=== PATIENT | female | born 1950 | race Caucasian/White ===

== ENCOUNTER 2017-06-25 01:48 | Emergency (ER) | payer MEDICAID, OTHER ==
[~2017-06-25] VITALS: Ht 157.5 cm; Wt 90.0 kg
[~2017-06-25 01:48] MED LIST: ASPI81TA3 PO
[2017-06-25 01:53] VITALS: Ht 157.5 cm; Wt 90.0 kg
[2017-06-25] MEDS ORDERED: SOD CHLORIDE 0.9% 1,000 ML IV STA (01:57)
[2017-06-25] MEDS ORDERED: METHYLPREDNISOLONE 125 MG INJ IV ONE (02:00)
[2017-06-25] MEDS ORDERED: morphine 4 MG/ML VIAL IV STA (02:28)
[2017-06-25] MEDS ORDERED: ONDANSETRON 4 MG INJ IV STA (02:28)
[2017-06-25 02:43] LABS: BASOPHIL # 0.1 10^3/ul (0.0-0.1); BASOPHILS % 0.5 % (0.0-2.0); EOSINOPHILS # 0.1 10^3/ul (0.0-0.5); EOSINOPHILS % 1.1 % (0.0-7.0); HEMATOCRIT 39.4 % (37.0-47.0); HEMOGLOBIN 12.8 g/dl (12.0-16.0); LYMPHOCYTES # 0.8 10^3/ul (0.8-2.9); LYMPHOCYTES % 7.2 % (15.0-51.0); MEAN CORPUSCULAR HEMOGLOBIN 28.3 pg (29.0-33.0); MEAN CORPUSCULAR HGB CONC 32.5 g/dl (32.0-37.0); MEAN CORPUSCULAR VOLUME 87.2 fl (82.0-101.0); MEAN PLATELET VOLUME 9.6 fl (7.4-10.4); MONOCYTE # 0.7 10^3/ul (0.3-0.9); MONOCYTES % 6.7 % (0.0-11.0); NEUTROPHIL # 8.9 10^3/ul (1.6-7.5); PLATELET COUNT 333 10^3/UL (140-415); RED BLOOD COUNT 4.52 10^6/ul (4.20-5.40); RED CELL DISTRIBUTION WIDTH 14.4 % (11.5-14.5); WHITE BLOOD COUNT 10.6 10^3/ul (4.8-10.8)
--- NOTE | 2017-06-25 02:56 | RADRPT ---
PROCEDURE: XR Chest. CLINICAL INDICATION: Shortness of breath TECHNIQUE: AP Portable chest. COMPARISON: CR CHEST 09/21/2015 FINDINGS: Lordotic view was obtained. The cardiomediastinal silhouette is magnified .The aortic arch is calcified. No focal consolidation, pleural effusion or pneumothorax is seen. The osseous structures are intact. IMPRESSION: No radiographic evidence of acute cardiopulmonary disease. Physician Mert Date Time Electronically viewed and signed by Liz Minor Physician on 06/25/2017 02:56 CS/
[2017-06-25 03:00] LABS: ALANINE AMINOTRANSFERASE 45 IU/L (13-69); ALBUMIN 3.8 g/dl (3.3-4.9); ALBUMIN/GLOBULIN RATIO 1.26; ALKALINE PHOSPHATASE 93 IU/L (42-121); ANION GAP 14 (8-16); ASPARTATE AMINO TRANSFERASE 22 IU/L (15-46); BILIRUBIN,INDIRECT 0.2 mg/dl (0-1.1); BILIRUBIN,TOTAL 0.2 mg/dl (0.2-1.3); BLOOD UREA NITROGEN 10 mg/dl (7-20); CALCIUM 8.7 mg/dl (8.4-10.2); CARBON DIOXIDE 27 mmol/L (21-31); CHLORIDE 103 mmol/L (97-110); CREATININE 0.67 mg/dl (0.44-1.00); GLUCOSE 142 mg/dl (70-220); POTASSIUM 3.7 mmol/L (3.5-5.1); SODIUM 140 mmol/L (135-144); TOTAL PROTEIN 6.8 g/dl (6.1-8.1)
[2017-06-25 03:08] LABS: B-TYPE NATRIURETIC PEPTIDE 267 PG/ML (0-125)
[2017-06-25 03:15] LABS: TROPONIN-I < 0.012 ng/ml (0.00-0.12)
--- NOTE | 2017-06-25 05:29 | ERD ---
ER Documentation Chief Complaint Chief Complaint fever, cough, hernández and weakness HPI This is a 67-year-old female comes in with complaints of fever, headache and weakness for the past 2 days first started with cough which is mildly productive of greenish sputum and developed fever and weakness. Also complains of mild headache. Nonfocal neurologically. No other current issues. ROS All systems reviewed and are negative except as per history of present illness. Medications Home Meds Active Scripts Aspirin (Aspirin) 81 Mg Chew, 81 MG PO DAILY for 30 Days, TAB Prov:YOHANA MCNAMARA 09/23/15 Allergies Allergies: Coded Allergies: No Known Allergy (Unverified , 09/21/15) PMhx/Soc History of Surgery: Yes (cholecystectomy, ) Anesthesia Reaction: No Hx Neurological Disorder: No Hx Respiratory Disorders: No Hx Cardiac Disorders: Yes (AL one year ago, CAD, HTN) Hx Psychiatric Problems: No Hx Miscellaneous Medical Probl: No Hx Alcohol Use: No Hx Substance Use: No Hx Tobacco Use: No Smoking Status: Never smoker Physical Exam Vitals Vital Signs Date Time Temp Pulse Resp B/P Pulse Ox O2 Delivery O2 Flow Rate FiO2 06/25/17 02:38 99.8 81 16 132/73 94 Room Air 06/25/17 01:53 100.0 80 16 139/90 95 Physical Exam Const: [] Head: Atraumatic Eyes: Normal Conjunctiva ENT: Normal External Ears, Nose and Mouth. Neck: Full range of motion..~ No meningismus. Resp: Clear to auscultation bilaterally Cardio: Regular rate and rhythm, no murmurs Abd: Soft, non tender, non distended. Normal bowel sounds Skin: No petechiae or rashes Back: No midline or flank tenderness Ext: No cyanosis, or edema Neur: Awake and alert Psych: Normal Mood and Affect Result Diagram: 06/25/17 0215 06/25/17 0215 Results 24 hrs Laboratory Tests Test 06/25/17 02:15 White Blood Count 10.610^3/ul Red Blood Count 4.5210^6/ul Hemoglobin 12.8g/dl Hematocrit 39.4% Mean Corpuscular Volume 87.2fl Mean Corpuscular Hemoglobin 28.3pg Mean Corpuscular Hemoglobin Concent 32.5g/dl Red Cell Distribution Width 14.4% Platelet Count 85181^3/UL Mean Platelet Volume 9.6fl Neutrophils % 84.0% Lymphocytes % 7.2% Monocytes % 6.7% Eosinophils % 1.1% Basophils % 0.5% Nucleated Red Blood Cells % 0.0/100WBC Neutrophils # 8.910^3/ul Lymphocytes # 0.810^3/ul Monocytes # 0.710^3/ul Eosinophils # 0.110^3/ul Basophils # 0.110^3/ul Nucleated Red Blood Cells # 0.010^3/ul Sodium Level 140mmol/L Potassium Level 3.7mmol/L Chloride Level 103mmol/L Carbon Dioxide Level 27mmol/L Anion Gap 14 Blood Urea Nitrogen 10mg/dl Creatinine 0.67mg/dl Glucose Level 142mg/dl Lactic Acid Level 1.1mmol/L Calcium Level 8.7mg/dl Total Bilirubin 0.2mg/dl Direct Bilirubin 0.00mg/dl Indirect Bilirubin 0.2mg/dl Aspartate Amino Transf (AST/SGOT) 22IU/L Alanine Aminotransferase (ALT/SGPT) 45IU/L Alkaline Phosphatase 93IU/L Troponin I < 0.012ng/ml B-Type Natriuretic Peptide 267PG/ML Total Protein 6.8g/dl Albumin 3.8g/dl Globulin 3.00g/dl Albumin/Globulin Ratio 1.26 Current Medications Medications (Trade) Dose Ordered Sig/Erica Route PRN Reason Start Time Stop Time Status Last Admin Dose Admin Sodium Chloride (NS) 1,000 ml @ 1,000 mls/hr Q1H STAT IV 06/25/17 01:57 06/25/17 02:56 DC 06/25/17 02:22 Methylprednisolone Sodium Succinate (Solu-Medrol) 125 mg ONCE ONCE IV 06/25/17 02:00 06/25/17 02:01 DC 06/25/17 02:22 Ondansetron HCl (Zofran Inj) 4 mg ONCE STAT IV 06/25/17 02:28 06/25/17 02:29 DC 06/25/17 02:32 Morphine Sulfate (morphine) 4 mg ONCE STAT IV 06/25/17 02:28 06/25/17 02:29 DC 06/25/17 02:33 Procedures/MDM Chest X-ray 1V Interpreted by me: Soft Tissue: No acute abnormalities Bones: No acute abnormalities Mediastinum/Cardiac Silhouette/Lungs: [No acute abnormalities] Blood and urine cultures pending Lactic acid negative Influenza negative Medical decision makin-year-old female with looks to be a mild bronchitis. No evidence of sepsis or pneumonia. Well-appearing. Patient be discharged home with azithromycin, prednisone, albuterol. Follow-up PCP. Return for worsening symptoms. Departure Diagnosis: Primary Impression: Upper respiratory infection URI type: unspecified URI Qualified Code: J06.9 - Upper respiratory tract infection, unspecified type Condition: Stable MICKEY DE PAZ Jun 25, 2017 05:29
[2017-06-25] MEDS ORDERED: AZIT250T94 PO (05:36)
[2017-06-25] MEDS ORDERED: ALBU18HF INHALATION (05:36)
[2017-06-25] MEDS ORDERED: PRED20TA PO (05:36)
[2017-06-25] MEDS ORDERED: IBUP-1542 PO (05:43)
[2017-06-25 05:50] VITALS: BP 109/63; PULSE 89; RESP 16; TEMP 98.6
== END 2017-06-25 05:50 | disposition home or self-care (01) ==
LOC: E/R 01:48
DX: J06.9 Acute upper respiratory infection, unspecified (principal); I25.10 Atherosclerotic heart disease of native coronary artery without angina pectoris; I10 Essential (primary) hypertension; R06.02 Shortness of breath; R40.2142 Coma scale, eyes open, spontaneous, at arrival to emergency department; R40.2252 Coma scale, best verbal response, oriented, at arrival to emergency department; R40.2362 Coma scale, best motor response, obeys commands, at arrival to emergency department; Z79.82 Long term (current) use of aspirin
CPT/HCPCS: 36415; 71010; 80053; 83605; 83880; 84484; 85025; 87040; 87400; 93005; 96374; 96375; 99285; J2270; J2405; J2930; J7030

== ENCOUNTER 2018-02-19 02:30 | Emergency (ER) | END 2018-02-19 03:42 | disposition home or self-care (01) ==